=== PATIENT | male | born 1950 | race Caucasian/White ===

== ENCOUNTER → 2023-09-09 13:29 | Outpatient (REF) | payer MEDICARE, OTHER, SELFPAY ==
[2023-09-09 15:01] LABS: Potassium 3.7 mmol/L (3.5-5.1)
[2023-09-09 16:32] LABS: PSA, Total - Diagnostic 2.92 ng/ml (0.0-4.0)
== END ==
LOC: REG 13:29
PROVIDERS: ATTENDING PHYSICIAN Specialist
DX: R97.20 Elevated prostate specific antigen [PSA] (principal); R33.8 Other retention of urine
CPT/HCPCS: 36415; 84132; 84153

== ENCOUNTER 2024-05-31 15:38 | Emergency (ER) | payer MEDICARE, OTHER, SELFPAY ==
[2024-05-31 15:40] VITALS: BP 204/102
[2024-05-31 15:59] VITALS: BMI 31.2
[2024-05-31 16:03] VITALS: BP 176/95
--- NOTE | 2024-05-31 16:49 | ED.GENMED ---
History of Present Illness
General
Chief Complaint: Abdominal Pain
Source: patient
Exam Limitations: none
Time Seen by Provider: 05/31/24 15:56
Nursing documentation reviewed up to this point in time: agreed with
History of Present Illness
History of Present Illness:
74-year-old male with past medical history of BPH, recurrent umbilical hernia presenting to the emergency department today with concerns of a hernia that popped out 1 hour prior to arrival while he was at work. Usually he is able to reduce this on
his own has had this intermittently over the past few years. Denies any change in bowel movements. Did have nausea earlier as well.
Past History
Past History
ED Past Medical History: HTN and Other
ED Past Surgical History: Cholecystectomy and Urological
Social History
Tobacco: Former smoker
Alcohol: Occasional
Drug: None
Personal:
Living: with family
Review of Systems
Review of Systems
Allergies reviewed?: Yes
All Other Systems: ROS reviewed and negative except as documented in HPI and ROS
Phy Exam
Physical Exam
Physical Exam:
GENERAL: Alert , in no apparent distress
EYE: pupils equal and reactive
NECK: Supple, no significant adenopathy.
ENT: o/p clr, mmm.
CARDIAC: Regular rate and rhythm .
LUNGS: Clear breath sounds bilaterally, no acute respiratory distress, no wheezes/rales/rhonchi
ABDOMEN: Umbilical hernia, soft, without focal tenderness, no r/g, no cvat
NEUROLOGICAL: Alert and oriented, no focal neuro deficits
SKIN: Warm and dry, skin intact.
MUSCULOSKELETAL: No edema, well perfused.
PSYCH: Normal and appropriate interaction.
Course
Vital Signs
Initial and Last Documented VS:
Initial Vital Signs
Temp Pulse Resp BP Pulse Ox
97.9 F 102 16 204/102 97
05/31/24 15:40 05/31/24 15:40 05/31/24 15:40 05/31/24 15:40 05/31/24 15:40
Last Documented Vital Signs
Temp Pulse Resp BP Pulse Ox
97.9 F 102 16 176/95 97
05/31/24 15:40 05/31/24 15:40 05/31/24 15:40 05/31/24 16:03 05/31/24 16:04
Procedures
Other
Indication for procedure:: Umbilical hernia, reduction
Procedure completed by: Myself
Consent form signed: No
If no, reason: Emergency procedure
Additional Procedure:
Umbilical hernia was reduced with pressure.
*Critical Care Note
Total Time (30-74mins, 75-104mins- exclusive of procedures): Not Applicable
ED Attending Note
-
Portions of this chart may have been created with voice recognition software.� Occasional wrong word or��sound alike� substitutions may have occurred due to the inherent limitations of voice recognition software.
Discharge Plan
Departure
Patient Disposition: Home (Routine Discharge)
Date of Disposition: 05/31/24
Time of Disposition: 16:49
Patient with high blood pressure during this ER visit?: No
Condition: Good
Covid-19: Not Applicable
Discharge Problem:
Hernia, umbilical
Instructions: Abdominal Hernia
Prescriptions:
No Action
diltiazem HCl 300 MG capsule,extended release 24hr
300 mg PO DAILY
potassium chloride 8 MEQ capsule, extended release
16 meq PO BID
cholecalciferol (vitamin D3) 2,000 UNITS tablet
6,000 units PO DAILY
losartan-hydrochlorothiazide 1 TAB tablet
1 tab PO DAILY
ketorolac 1 DROP drops
1 drp LEFT EYE DAILY
dorzolamide-timolol [Cosopt] 10 ML drops
1 drp BOTH EYES BID
difluprednate [Durezol] 5 ML drops
1 drp LEFT EYE BID
Referrals:
Salvador Velasco MD [Family Provider] -
Bogdan Sim MD [Active] - Follow up in 1 week
Activity Restrictions/Additional Instructions:
You came to the emergency department today with concerns of a hernia. This was able to reduced here please rest and follow-up closely with general surgery for further management. Return to the emergency department any worsening, new or concerning
symptoms.
Interventions
Interventions:
*Risk Screen - Suicide Last Done: 05/31/24 15:40
*General Assessment Last Done: 05/31/24 15:40
*Neglect/Abuse Screening Last Done: 05/31/24 15:40
ED- Fall Risk Assessment Last Done: 05/31/24 16:24
*ED COVID-19 Vaccine History Last Done: 05/31/24 15:59
MJ-Jxidhu-Nmfaaimpbp Assessment Last Done: 05/31/24 15:59
Discharge Date and Time
Print Language: KYRGYZ
== END 2024-05-31 16:56 | disposition home or self-care (01) ==
LOC: EMR 15:38
PROVIDERS: EMERGENCY PHYSICIAN Emergency Medicine; FAMILY PHYSICIAN Family Medicine
DX: K42.9 Umbilical hernia without obstruction or gangrene (principal); I10 Essential (primary) hypertension; N40.0 Benign prostatic hyperplasia without lower urinary tract symptoms; Z87.891 Personal history of nicotine dependence; Z90.49 Acquired absence of other specified parts of digestive tract
CPT/HCPCS: 99282

== ENCOUNTER 2024-07-07 06:16 | Day surgery (SDC) | payer MEDICARE, OTHER, SELFPAY ==
[2024-07-07 06:50] VITALS: BP 144/78
[2024-07-07 06:51] VITALS: BMI 29.2
[2024-07-07 06:52] VITALS: BMI 29.2
[2024-07-07] MEDS: TYLENOL 1000 MG PO (07:01)
--- NOTE | 2024-07-07 07:03 | W.SUR.PREOP ---
Pre-Operative Surgical Note
-
I have examined this patient prior to the performance of the scheduled procedure.
The patient's condition is unchanged from the time of the current History and
Physical and the patient is able to undergo the scheduled procedure.
--- NOTE | 2024-07-07 07:03 | HP.FOC2 ---
Focused History & Physical
Chief Complaint
HPI:
Chief Complaint: Incisional hernia
HPI / Indication for Planned Procedure: Open incisional hernia repair with mesh
Relevant Past Medical History: Hypertension
Relevant Social History: Negative
Relevant Family History: Negative
Relevant Past Surgical History: Positive for (Laparoscopic cholecystectomy)
Review of Systems
Review of Pertinent Systems: All Systems Negative
Medication
See Medication form for detailed medications: Yes
Medication List (including Herbals & OTC):
cholecalciferol (vitamin D3) 50 mcg (2,000 unit) tablet 5,000 units PO DAILY Supplement 06/24/19
diltiazem HCl 300 mg capsule,extended release 24 hr 300 mg PO HS Blood pressure 06/24/19
dorzolamide 22.3 mg-timolol 6.8 mg/mL eye drops (Cosopt) 1 drp BOTH EYES BID Eye condition 07/24/21
losartan 100 mg-hydrochlorothiazide 25 mg tablet 1 tab PO DAILY 07/06/24
potassium chloride 20 mEq tablet,extended release 20 meq PO DAILY 07/06/24
tamsulosin 0.4 mg capsule 0.8 mg PO HS 07/06/24
Medications Reviewed: Yes
Allergies and Reactions
Patient has Allergies: Yes
Noted Allergies and Reactions:
Allergy/AdvReac Type Severity Reaction Status Date / Time
No Known Allergies Allergy Verified 07/07/24 06:46
Pertinent Physical Exam
All Other Systems: Negative
Head/Neck: Normal
Diagnosis / Assessment
This is a 74-year-old male with a symptomatic incisional hernia
Plan / Procedure
Will plan for an open incisional hernia repair with mesh
Anesthesia/Sedation to be done by Anesthesia Provider: Yes
[2024-07-07 08:16] VITALS: BP 130/74
--- NOTE | 2024-07-07 08:24 | W.IMMPOSTOP ---
Surgical Immed Post Op Note
-
Primary Surgeon: Kye Mars MD
Assisting Surgeon: None
Pre-op Diagnosis: Incisional hernia
Post-op Diagnosis: Same
Procedure Performed: Primary open incisional hernia repair
Anesthesia Type: General
Specimen / Cultures: None
Estimated Blood Loss: 1 cc
Complications: None
Operative Findings: 1 cm incisional hernia containing preperitoneal fat. This was closed with 2 [id number] 0 Surgilon sutures.
--- NOTE | 2024-07-07 08:25 | OR.RPT ---
Operative Report
Operative Report
Patient Name: Jonathan Simpson
: 1950
Date of Operation: 07/07/2024
Preoperative Diagnosis: Incisional hernia
Postoperative Diagnosis: Same
Procedure(s):
Open primary incisional hernia repair
Surgeon(s):
Dr. Mars
Strategic Sourcing Manager(s):
TAMMIE Wilhelm
Anesthesia: General
Estimated Blood Loss: 1 cc
Urine Output: None
Drains/Lines/Implants: None
Specimens: None
Indication for surgery:
The patient has a symptomatic supraumbilical incisional hernia. After review of their therapeutic options, they elected to pursue open repair.
Findings at the time of surgery:
Patient had a supraumbilical 1cm incisional hernia containing preperitoneal fat. This was closed with 2 [id number] 0 Surgilon sutures.
Details of the operation:
After successful induction of anesthesia, the patient was prepped and draped in the supine position. A team timeout was performed confirming administration of DVT prophylaxis, IV antibiotics and SCDs. The skin was anesthestized with 0.25% Marcaine
and his prior supraumbilical incision was incised and dissection carried down to the fascia. The hernia sac was then encircled and carefully dissected off of the umbilical stalk. The sac was opened and found to have contained preperitoneal fat
which was truncated to the level of the fascia with 3-0 Vicryl ties. The defect measured 1 cm. The preperitoneal space was developed to clearly identify the fascial edges. Two 0 Surgilon sutures were then used to close the defect in a
[id number] manner. The umbilical stalk was then tacked down to the fascia with a 3-0 Vicryl suture. The dermis was then approximated with interrupted 3-0 Vicryl sutures followed by Dermabond. Once the glue had dried, we placed a folded up
piece of gauze into the umbilicus and covered it with a large Tegaderm dressing and then suctioned out the gauze to create a vacuum dressing to help obliterate the space. The patient returned to the Recovery Room in stable condition. Sponge and
instrument counts were correct. No specimens sent to Pathology.
I was the attending physician and performed the procedure with assistance from the ENTRY LEVEL SOFTWARE DEVELOPER above. I was present for all portions of the case, excluding skin closure.
Kye Mars MD
[2024-07-07 08:30] VITALS: BP 137/75
[2024-07-07 08:45] VITALS: BP 143/71
[2024-07-07 09:00] VITALS: BP 144/75
== END 2024-07-07 09:15 | disposition home or self-care (01) ==
LOC: SDS 06:16
PROVIDERS: ATTENDING PHYSICIAN Surgery
DX: K43.2 Incisional hernia without obstruction or gangrene (principal)
CPT/HCPCS: 49591

== ENCOUNTER → 2024-09-16 07:46 | Outpatient (REF) | payer MEDICARE, OTHER, SELFPAY ==
[2024-09-16 10:26] LABS: PSA, Total - Diagnostic 3.15 ng/ml (0.0-4.0)
== END ==
LOC: RAD 07:46
PROVIDERS: ATTENDING PHYSICIAN Specialist; FAMILY PHYSICIAN Family Medicine
DX: R33.8 Other retention of urine (principal); R97.20 Elevated prostate specific antigen [PSA]
CPT/HCPCS: 36415; 76770; 84153